=== PATIENT | female | born 1995 | race African-American/Black ===

== ENCOUNTER 2017-03-19 04:17 | Emergency (ER) | payer OTHER ==
[~2017-03-19] VITALS: Ht 160 cm; Wt 72.6 kg
[2017-03-19 05:00] VITALS: BP 127/75
[2017-03-19] MEDS ORDERED: ZPAK PO (17:10)
[2017-03-19] MEDS ORDERED: PREDNISONE 20 M20 M1 PO (17:10)
[2017-03-19] MEDS ORDERED: BENZONATATE200 MG PO (17:10)
== END 2017-03-19 05:01 | disposition home or self-care (01) ==
LOC: M.ERS 04:17
DX: J06.9 Acute upper respiratory infection, unspecified (principal)

== ENCOUNTER 2017-03-19 16:40 | Emergency (ER) | payer OTHER ==
[~2017-03-19] VITALS: Ht 160 cm; Wt 72.6 kg
[2017-03-19] MEDS ORDERED: BENZONATATE200 MG PO (17:10)
[2017-03-19] MEDS ORDERED: ZPAK PO (17:10)
[2017-03-19] MEDS ORDERED: PREDNISONE 20 M20 M1 PO (17:10)
[2017-03-19 17:17] VITALS: BP 110/71
== END 2017-03-19 17:18 | disposition home or self-care (01) ==
LOC: M.ERS 16:40
DX: J03.90 Acute tonsillitis, unspecified (principal)

== ENCOUNTER 2017-05-04 20:46 | Emergency (ER) | payer OTHER ==
[~2017-05-04] VITALS: Ht 160 cm; Wt 72.6 kg
[~2017-05-04 20:46] MED LIST: BENZONATATE200 MG PO; PREDNISONE 20 M20 M1 PO; ZPAK PO
[2017-05-04] MEDS ORDERED: BACTRIM DS TAB1 EACH PO (21:04)
[2017-05-04] MEDS ORDERED: KEFLEX500 M1 PO (21:04)
[2017-05-04 21:14] VITALS: BP 126/80
== END 2017-05-04 21:15 | disposition home or self-care (01) ==
LOC: M.ERS 20:46
DX: L53.8 Other specified erythematous conditions (principal); T63.391A Toxic effect of venom of other spider, accidental (unintentional), initial encounter; Y92.89 Other specified places as the place of occurrence of the external cause

== ENCOUNTER 2018-02-08 20:39 | Emergency (ER) | payer OTHER, MEDICAID ==
[~2018-02-08] VITALS: Ht 160 cm; Wt 74.8 kg
[~2018-02-08 20:39] MED LIST changes: +BACTRIM DS TAB1 EACH PO; +KEFLEX500 M1 PO
[2018-02-08] MEDS ORDERED: CLEOCIN HCL300 MG PO (21:09)
[2018-02-08 21:27] VITALS: BP 139/82
== END 2018-02-08 21:27 | disposition home or self-care (01) ==
LOC: M.ERS 20:39
DX: R59.1 Generalized enlarged lymph nodes (principal)